=== PATIENT | female | born 1950 | race Caucasian/White ===

== ENCOUNTER 2017-10-20 08:40 | Inpatient (IN) | payer OTHER ==
[~2017-10-20 08:40] MED LIST: *PREOP 1000MG*TRANEX ACID/NS 100 ML IV ONE; TRANEXAMIC ACID 1,000 MG in NS (SYRINGE) 50 ML IV ONE
[2017-10-20] MEDS ORDERED: LR 1,000 ML IV ONE (08:52)
[2017-10-20] MEDS ORDERED: ACETAMINOPHEN 500 MG TAB PO ONE (08:52)
[2017-10-20] MEDS ORDERED: morphINE PF 0.2 MG in SYRINGE INTRATHECAL 1 SYR IT ONE (08:52)
[2017-10-20] MEDS ORDERED: ceFAZolin 2 GM/DEXTROSE 100 ML IV ONE (08:52)
[2017-10-20] MEDS ORDERED: LIDOCAINE 1% 2 ML INJ ID PRN (08:52)
[2017-10-20] MEDS ORDERED: fentaNYL 50 MCG in SYRINGE INTRATHECAL 1 SYR IT ONE (08:52)
[2017-10-20] MEDS ORDERED: GABAPENTIN 300 MG CAP PO ONE (08:52)
[2017-10-20] MEDS ORDERED: LIDOCAINE 1% 2 ML INJ ONE (09:22)
[2017-10-20] MEDS ORDERED: MIDAZOLAM 2 MG/2 ML VIAL IVP ONE (09:32)
--- NOTE | 2017-10-20 09:32 | PDANEPAE ---
ANE History of Present Illness L3 S1 TLIF ANE Past Medical History - Cardiovascular History Hx Hypertension: No Hx Arrhythmias: Yes Hx Chest Pain: No Hx Coronary Artery / Peripheral Vascular Disease: No Hx CHF / Valvular Disease: No Hx Palpitations: No Cardiovascular History Comment: irregular heart beat. 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 glaucoma. bruises easily - Chronic Pain History Chronic Pain: Yes (right knee) - Surgical History Prior Surgeries: neck C2-7 fusion 2003 ANE Review of Systems Review of systems is: negative Review of Systems: - Exercise capacity METS (RN): 4 METS ANE Patient History - Allergies Allergies/Adverse Reactions: lamotrigine Allergy (Verified 10/10/17 09:55) Vomiting oxcarbazepine Allergy (Verified 10/10/17 09:55) Vomiting sertraline Allergy (Verified 10/10/17 09:55) Vomiting - Home Medications Home medications: home medication list seen and reviewed Home Medications: Albuterol [Ventolin Hfa Inhaler] 1 puffs IH DAILY PRN 10/10/17 [Last Taken 10/20] Aspirin EC [Aspirin EC 81 mg (*)] 81 mg PO DAILY 10/10/17 [Last Taken 1 Week Ago ~10/13/17] Atorvastatin Calcium [Lipitor 40 mg (*)] 40 mg PO DAILY 10/10/17 [Last Taken 06/08] Cholecalciferol Vit D3 [Vitamin D3 (*)] 1,000 units PO DAILY 10/10/17 [Last Taken 1 Week Ago ~10/13/17] FLUoxetine [Prozac 20 MG (*)] 40 mg PO DAILY 10/10/17 [Last Taken 10/20/17] Fluticasone/Salmeter 250/50Mcg [Advair 250/50 (*)] 2 puffs IH BID 10/10/17 [ Last Taken 10/20/17] buPROPion SR [Wellbutrin 150mg SR (*)] 450 mg PO DAILY 10/10/17 [Last Taken 06/08] - NPO status NPO Status: no food or drink >8 hours NPO Since - Liquids (Date): 10/19/17 NPO Since - Liquids (Time): 06:30 NPO Since - Solids (Date): 10/19/17 NPO Since - Solids (Time): 20:00 - Anes Hx Anes Hx: no prior problems - Smoking Hx Smoking Status: Former smoker - Family Anes Hx Family Anes Hx: none Family Hx Anesthesia Complications: none ANE Labs/Vital Signs - Labs Result Diagrams: 10/20/17 09:31 10/20/17 09:31 - Vital Signs Vital Signs: reviewed preoperatively; see RN documention for details Height: 171.45 cm Weight: 80.739 kg ANE Physical Exam - Airway Neck exam: decreased ROM Mallampati Score: Class 1 Mouth exam: normal dental/mouth exam - Pulmonary Pulmonary: no respiratory distress - Cardiovascular Cardiovascular: regular rate and rhythym - ASA Status ASA Status: III ANE Anesthesia Plan Anesthesia Plan: general endotracheal anesthesia (pt understands there are risks with intubation due to neck and laryngeal comorbities and wishes to proceed)
[2017-10-20] MEDS ORDERED: BUPIVACAINE 0.25% 30 ML SDV ONE (09:39)
[2017-10-20] MEDS ORDERED: CHLORHEXIDINE GLUC HIBICLENS 118 ML BTL TP ONE (09:39)
[2017-10-20] MEDS ORDERED: THROMBIN (BOVINE) 20,000 UNIT VIAL TP ONE (09:39)
[2017-10-20] MEDS ORDERED: CITRATE DEXTROSE SOLN 500 ML BAG ONE (09:40)
[2017-10-20] MEDS ORDERED: EPINEPHrine 1 MG/ML INJ ONE (09:40)
[2017-10-20] MEDS ORDERED: BACITRACIN 50,000 UNITS/10 ML SYR IRR ONE ×2 (09:41→14:07)
[2017-10-20 09:49] LABS: PLATELET COUNT 202 10^3/uL (150-400)
--- NOTE | 2017-10-20 09:50 | CPEKG ---
Heart Rate: 59 RR Interval: 1017 P-R Interval: 200 QRSD Interval: 90 QT Interval: 428 QTC Interval: 424 P [place]: 76 QRS [place]: 77 T Wave [place]: 61 EKG Severity - BORDERLINE ECG - EKG Impression: SINUS RHYTHM EKG Impression: BORDERLINE T ABNORMALITIES, ANT-LAT LEADS Electronically Signed By: Scott Phillips 20-Oct-2017 11:00:25
[2017-10-20] MEDS ORDERED: LIDOCAINE 2% 100 MG/5 ML SYR ONE (10:50)
[2017-10-20] MEDS ORDERED: HYDROmorphONE/DILAUDID 2 MG/ML INJ ONE (10:50)
[2017-10-20] MEDS ORDERED: REMIFENTANIL HCL 1 MG VIAL ONE ×2 (10:50→15:06)
[2017-10-20] MEDS ORDERED: ROCURONIUM 50 MG/5 ML VIAL ONE (10:50)
[2017-10-20] MEDS ORDERED: DEXAMETHASONE 4 MG/ML VIAL ONE (10:50)
[2017-10-20] MEDS ORDERED: ONDANSETRON 4 MG/2 ML VIAL ONE (10:50)
[2017-10-20] MEDS ORDERED: PROPOFOL/EMULSION 500 MG/50 ML BOTTLE IV ONE (10:51)
[2017-10-20] MEDS ORDERED: PROPOFOL 200 MG/20 ML VIAL ONE ×2 (10:51→15:06)
[2017-10-20] MEDS ORDERED: fentaNYL 100 MCG/2 ML INJ ONE (10:51)
--- NOTE | 2017-10-20 10:51 | PDHPUP ---
History & Physical Update H&P update statement: This history and physical update is based on an assessment of the patient which was completed after admission or registration (within 24 hours), but prior to the surgery/procedure. H&P update: H&P reviewed & patient examined, no change in patient's condition since H&P completed
[2017-10-20] MEDS ORDERED: ALBUTEROL 3 ML DEYVIAL IH PRN (12:15)
[2017-10-20] MEDS ORDERED: oxyCODONE IR 5 MG TAB PO PRN ×2 (12:15→14:31)
[2017-10-20] MEDS ORDERED: HYDROCODONE/APAP 5/325 TAB PO PRN ×2 (12:15→14:31)
[2017-10-20] MEDS ORDERED: MEPERIDINE 25 MG/0.5 ML AMP IVP PRN ×2 (12:15→14:31)
[2017-10-20] MEDS ORDERED: DEXAMETHASONE 4 MG/ML VIAL IVP PRN ×2 (12:15→14:31)
[2017-10-20] MEDS ORDERED: PROMETHAZINE HCL 25 MG/ML INJ IVP PRN ×2 (12:15→14:31)
[2017-10-20] MEDS ORDERED: ONDANSETRON 4 MG/2 ML VIAL IVP PRN ×3 (12:15→16:14)
[2017-10-20] MEDS ORDERED: LABETALOL HCL 5 MG/ML 20 ML MDV IVP PRN ×2 (12:15→14:31)
[2017-10-20] MEDS ORDERED: HYDROmorphONE/DILAUDID 1 MG/ML INJ IVP PRN ×2 (12:15→14:31)
[2017-10-20] MEDS ORDERED: DIAZEPAM 5 MG/ML 1 ML SYR IVP PRN ×2 (12:15→14:31)
[2017-10-20] MEDS ORDERED: NALOXONE HCL 0.4 MG/ML INJ IVP PRN ×3 (12:15→16:14)
[2017-10-20] MEDS ORDERED: fentaNYL 100 MCG/2 ML INJ IVP PRN ×2 (12:15→14:31)
[2017-10-20] MEDS ORDERED: THROMBIN (BOVINE) 5,000 UNIT VIAL TP ONE (12:48)
[2017-10-20] MEDS ORDERED: ceFAZolin 1 GM VIAL ONE (13:17)
[2017-10-20] MEDS ORDERED: ACETAMINOPHEN 500 MG TAB PO PRN (14:31)
--- NOTE | 2017-10-20 14:34 | POSTANESTH ---
Post Anesthetic Evaluation Cardiovascular Status: Normal, Stable, Similar to Pre-Op Cond Respiratory Status: Normal, Stable, Similar to Pre-op Cond. Level of Consciousness/Mental Status: Can Participate in Eval, Mildly Sleepy, Arousable Pain Control: Adequate, Prn Tx Ordered Nausea/Vomiting Control: Adequate, Prn Tx Ordered Complications Possibly Related to Anesthesia: None Noted
[2017-10-20] MEDS ORDERED: diphenhydrAMINE 25 MG CAP PO PRN (16:14)
[2017-10-20] MEDS ORDERED: MAGNESIUM HYDROXIDE 30 ML UDCUP PO PRN (16:14)
[2017-10-20] MEDS ORDERED: LACTULOSE 20 GM/30 ML UDCUP PO PRN (16:14)
[2017-10-20] MEDS ORDERED: morphINE PCA 30 MG/30 ML PCA IV PRN (16:14)
[2017-10-20] MEDS ORDERED: BISACODYL 10 MG SUPP PR PRN (16:14)
--- NOTE | 2017-10-20 16:20 | SOAPPROG ---
SOAP Progress Note Assessment/Plan: Assessment: 67 yo F sp L3-S1 TLIF Plan: stable PT/OT x-rays in am lovenox starts pod #1 please call with neuro changes 10/20/17 16:19 Subjective: + back pain, no leg pain. Objective: Vital Signs Temp Pulse Resp BP Pulse Ox 36.8 C 58 L 18 126/75 H 96 10/20/17 09:10 10/20/17 09:10 10/20/17 09:10 10/20/17 09:10 10/20/17 09:10 Laboratory Results 10/20/17 09:31 10/20/17 09:31 somnolent PERRL, no facial droop BIJAN x 4 + light touch ICD10 Worksheet Patient Problems: Problems Problem Status Onset Fusion of spine of lumbar region Acute - ICD10 Problem Qualifiers (1) Fusion of spine of lumbar region
--- NOTE | 2017-10-20 16:33 | GOP ---
[f rep st] OPERATIVE REPORT DATE OF OPERATION: 10/20/2017 SURGEON: Dennys Wiggins MD ELECTRICAL SYSTEM SPECIALIST: Christopher Galindo PA-C. ANESTHESIA: General endotracheal. PREOPERATIVE DIAGNOSIS: Severe multilevel lumbar degenerative joint disease with unstable spondyloli sthesis and critical spinal stenosis. Intractable low back pain and left greater than right lower ex tremity radicular symptoms. Intractable neurogenic claudication. Failed conservative care. POSTOPERATIVE DIAGNOSIS: Severe multilevel lumbar degenerative joint disease with unstable spondylol isthesis and critical spinal stenosis. Intractable low back pain and left greater than right lower e xtremity radicular symptoms. Intractable neurogenic claudication. Failed conservative care. PROCEDURE PERFORMED: Left-sided far lateral transpedicular decompression at the L3-4, L4-5 and L5-S1 levels with L3 through S1 posterior segmental (pedicle screw and axle device) fixation and posterola teral fusion with local autograft, bone morphogenic protein and morselized allograft. L3-4, L4-5 and L5-S1 posterior/transforaminal lumbar interbody fusion with 2 structural PEEK interbody spacers, loc al autograft bone morphogenic protein and morselized allograft. Use of intraoperative microscopy, fl uoroscopy and computer volumetric stereotactic navigation with intraoperative neurophysiologic testin g. Injection of intrathecal narcotic analgesics and subcutaneous and intramuscular local anesthesia for postoperative pain control. FINDINGS: ESTIMATED BLOOD LOSS: 700 cc. INDICATIONS: The patient is a 67-year-old woman with intractable low back pain and left greater than right lower extremity radicular and neurogenic claudication symptoms secondary to severe multilevel lumbar degenerative joint disease and unstable spondylolisthesis with critical spinal stenosis. She has failed extensive conservative care and presents now for multilevel surgical decompression and sta bilization. DESCRIPTION OF PROCEDURE: After informed consent was obtained, the patient was taken to the operatin g room and placed in the prone position on Cory table. The lumbosacral area was prepped and drape d in sterile fashion. After fluoroscopic localization of the correct level the subcutaneous and intr amuscular tissues were infiltrated with local anesthesia. A midline linear incision was then created over the L3 through S1 spinous processes. This was estephania d down to the fascial layer which was then incised using monopolar electrocautery and carried in the subfascial plane along the spinous processes and out the lamina bilaterally. Intraoperative fluorosc opy was again utilized to verify the correct levels. Following this, the dissection was carried out over the facet joints. The microscope was then brought in and after carefully scraping all of the so ft tissue off the bone, left-sided far lateral decompressions were performed with complete unroofing of the facet joints at L3-4, L4-5 and L5-S1 with excellent decompression of the L3-L4, L5 and S1 nerv e roots, the lateral recesses and central canal. The microscope was angled across the midline and ri ght-sided decompressions were performed as well while leaving the spinous processes and interspinous ligaments intact. Following adequate decompression, the [employer] was brought in and using computer volumetric stereotactic navigation, pedicle screws were placed at L3, L4, L5, and S1 bilaterally. Each individual screw was tested neurophysiologically with monopolar electrostim ulation and interpretation of the potentials by the surgeon. Individual rods were then placed and se cured under distraction 1st at L3-4, then at L4-5 then at L5-S1 during which time complete diskectomi es were performed with preparation of the endplates and placement of 2 structural PEEK interbody spac ers, local autograft and bone morphogenic protein at each level. The short rods were then removed an d longer maximally lordotic rods were then placed from L3 through S1 and a slight amount of compressi on was created across the interspaces in order to facilitate bony union and to minimize the potential for posterior graft migration. 200 mcg of Duramorph along with 50 mcg of fentanyl were then injecte d intrathecally for postoperative pain control. The remaining lamina and facet joints on the right s bran were then extensively decorticated, and the residual local autograft along with bone morphogenic protein and morselized allograft was placed out laterally for the posterolateral fusion at the L3 thr ough S1 levels. The subcutaneous and intramuscular tissues were then re-infiltrated with local anest hesia. A drain was placed and the wound was closed in a layered fashion using interrupted Vicryl sut ures followed by Steri-Strips on the skin after re-verification of good position of the screws, rods and interbody spacers using biplanar fluoroscopy. COMPLICATIONS: None. DISPOSITION: The patient is currently in the process of being repositioned for extubation. [facility][id number][facility] [place]
[2017-10-20] MEDS ORDERED: ALBUTEROL 60 PUFFS/8 GM MDI IH PRN (17:00)
[2017-10-20] MEDS: NS 1,000 ML IV SCH (18:03)
[2017-10-20] MEDS ORDERED: FLUTICASONE/SALMETER 250/50MCG DISKUS IH SCH (21:00)
[2017-10-20] MEDS: ceFAZolin 2 GM/DEXTROSE 100 ML IV SCH (21:10)
[2017-10-20] MEDS: FAMOTIDINE 20 MG TAB PO SCH (21:10)
[2017-10-20] MEDS: ACETAMINOPHEN 500 MG TAB PO SCH (21:10)
[2017-10-20] MEDS: SENNOSIDES/DOCUSATE SODIUM TAB PO SCH (21:10)
[2017-10-20] MEDS ORDERED: ceFAZolin 2 GM/DEXTROSE 100 ML IV SCH (22:00)
[2017-10-20] MEDS: GABAPENTIN 300 MG CAP PO SCH (22:37)
[2017-10-20] MEDS: morphINE SR 30 MG TAB PO SCH (22:37)
[2017-10-21] MEDS: METHOCARBAMOL 750 MG TAB PO PRN (03:35)
[2017-10-21] MEDS: ceFAZolin 2 GM/DEXTROSE 100 ML IV SCH (03:35)
[2017-10-21] MEDS: ACETAMINOPHEN 500 MG TAB PO SCH ×3 (05:23→23:17)
[2017-10-21] MEDS: GABAPENTIN 300 MG CAP PO SCH ×3 (05:29→23:17)
[2017-10-21 05:35] LABS: PLATELET COUNT 170 10^3/uL (150-400)
[2017-10-21] MEDS: buPROPion SR 150 MG TAB PO SCH (08:34)
[2017-10-21] MEDS: FLUoxetine 20 MG CAP PO SCH (08:34)
[2017-10-21] MEDS: SENNOSIDES/DOCUSATE SODIUM TAB PO SCH ×2 (08:35→22:48)
[2017-10-21] MEDS: FAMOTIDINE 20 MG TAB PO SCH ×2 (08:35→22:47)
[2017-10-21] MEDS: ATORVASTATIN CALCIUM 40 MG TAB PO SCH (08:35)
[2017-10-21] MEDS: ENOXAPARIN 40 MG/0.4 ML SYR SC SCH (08:36)
[2017-10-21] MEDS: morphINE SR 30 MG TAB PO SCH (08:37)
[2017-10-21] MEDS: oxyCODONE IR 5 MG TAB PO PRN (08:49)
[2017-10-21] MEDS: Mometasone/Formoterol [Dulera 100 Mcg/5 Mcg Inhaler] IH SCH (09:11)
[2017-10-21] MEDS: morphINE SR 15 MG TAB PO SCH ×2 (09:37→22:48)
--- NOTE | 2017-10-21 09:46 | SOAPPROG ---
SOAP Progress Note Assessment/Plan: Assessment: 67 yo F POD #1 L3-S1 TLIF Plan: stable and doing well overall :) PT/OT x-rays today scd/ping/lovenox for DVT prophylaxis LSO brace when out of bed DEEPA x 1 please call with neuro changes discussed with Dr Marquez 10/20/17 16:19 10/21/17 09:44 Subjective: back pain worsening today, no leg pain, no weakness. Objective: Vital Signs Temp Pulse Resp BP Pulse Ox 36.9 C 60 14 112/56 L 97 10/21/17 07:40 10/21/17 09:28 10/21/17 09:28 10/21/17 07:40 10/21/17 09:28 Laboratory Results 10/21/17 05:10 10/21/17 05:10 10/20/17 10/21/17 10/22/17 05:59 05:59 05:59 Intake Total 2455 Output Total 1985 555 Balance 470 -555 AAOx4, +FC PERRL, EOMI, no facial droop BIJAN x4 + light touch C/D/I ICD10 Worksheet Patient Problems: Problems Problem Status Onset Fusion of spine of lumbar region Acute - ICD10 Problem Qualifiers (1) Fusion of spine of lumbar region
--- NOTE | 2017-10-21 10:12 | PDMN ---
Medical Necessity Medical necessity: MCG S820 lumbar fusion 3 days [facility] INTP only TLIF L3/S1
[2017-10-21] MEDS: NS 1,000 ML IV SCH ×2 (14:27→17:09)
[2017-10-21] MEDS ORDERED: NS 500 ML IV ONE (15:00)
--- NOTE | 2017-10-21 16:26 | ASMTCMCOM ---
CM Note CM Note Notes: Pt had planned back surgery, resides in [facility]. OT rec home, PT eval pending. CM to follow. Date Signed: 10/21/2017 04:26 PM Electronically Signed By:DEBO Rob
[2017-10-21] MEDS ORDERED: CALCIUM CARBONATE 500 MG CHEWABLE TAB PO PRN (17:23)
[2017-10-21] MEDS ORDERED: PROMETHAZINE HCL 25 MG/ML INJ IV PRN (17:24)
[2017-10-22] MEDS: GABAPENTIN 300 MG CAP PO SCH ×3 (05:13→21:48)
[2017-10-22] MEDS: ACETAMINOPHEN 500 MG TAB PO SCH ×3 (05:13→21:48)
[2017-10-22 05:27] LABS: PLATELET COUNT 157 10^3/uL (150-400)
--- NOTE | 2017-10-22 07:31 | GPROG ---
[f rep st] PROGRESS NOTE NEUROSURGICAL PROGRESS NOTE. The patient was seen and examined today and is awake, alert and moving all her extremities well. Her dressing is clean and dry. Her drain is still putting out quite a bit of fluid. We will continue w [facility] physical therapy and look at possible placement in rehab. Otherwise, continue present management . /[id number]/[facility]
[2017-10-22] MEDS ORDERED: NS 1,000 ML IV ONE (08:30)
[2017-10-22] MEDS: Mometasone/Formoterol [Dulera 100 Mcg/5 Mcg Inhaler] IH SCH (08:50)
[2017-10-22] MEDS ORDERED: FLUoxetine 20 MG CAP PO SCH (09:00)
[2017-10-22] MEDS: SENNOSIDES/DOCUSATE SODIUM TAB PO SCH ×2 (10:24→20:10)
[2017-10-22] MEDS: FAMOTIDINE 20 MG TAB PO SCH ×2 (10:25→20:11)
[2017-10-22] MEDS: buPROPion SR 150 MG TAB PO SCH (10:25)
[2017-10-22] MEDS: ATORVASTATIN CALCIUM 40 MG TAB PO SCH (10:25)
[2017-10-22] MEDS: FLUoxetine 20 MG CAP PO SCH (10:25)
[2017-10-22] MEDS: ENOXAPARIN 40 MG/0.4 ML SYR SC SCH (10:26)
[2017-10-22] MEDS: morphINE SR 15 MG TAB PO SCH ×2 (11:18→20:12)
--- NOTE | 2017-10-22 15:09 | ASMTCMCOM ---
CM Note CM Note Notes: Reviewed chart regarding discharge plan of care, pt's progress. PT cleared, but recommends a front wheeled walker. OT cleared. Pt to likely discharge home independently with family support back to [place], when medically stable. CM will continue to follow for any potential needs. Current Discharge Plan: Home independently with family support Date Signed: 10/22/2017 03:08 PM Electronically Signed By:Noy Bernal RN
[2017-10-22] MEDS: METHOCARBAMOL 750 MG TAB PO PRN ×2 (15:29→21:48)
[2017-10-22] MEDS: oxyCODONE IR 5 MG TAB PO PRN ×3 (15:35→20:12)
[2017-10-23] MEDS: ACETAMINOPHEN 500 MG TAB PO SCH ×3 (05:14→22:52)
[2017-10-23] MEDS: GABAPENTIN 300 MG CAP PO SCH ×3 (05:15→21:13)
[2017-10-23] MEDS: ATORVASTATIN CALCIUM 40 MG TAB PO SCH (08:54)
[2017-10-23] MEDS: buPROPion SR 150 MG TAB PO SCH (08:54)
[2017-10-23] MEDS: FAMOTIDINE 20 MG TAB PO SCH ×2 (08:54→21:11)
[2017-10-23] MEDS: METHOCARBAMOL 750 MG TAB PO PRN ×2 (08:54→18:12)
[2017-10-23] MEDS: FLUoxetine 20 MG CAP PO SCH (08:54)
[2017-10-23] MEDS: ENOXAPARIN 40 MG/0.4 ML SYR SC SCH (08:54)
[2017-10-23] MEDS: SENNOSIDES/DOCUSATE SODIUM TAB PO SCH ×2 (08:55→22:32)
[2017-10-23] MEDS: Mometasone/Formoterol [Dulera 100 Mcg/5 Mcg Inhaler] IH SCH (09:55)
[2017-10-23] MEDS: morphINE SR 15 MG TAB PO SCH ×2 (09:56→21:16)
[2017-10-23] MEDS: oxyCODONE IR 5 MG TAB PO PRN (10:25)
[2017-10-23] MEDS: ONDANSETRON DISINTEGRATING 4 MG TAB PO PRN ×2 (12:01→21:11)
--- NOTE | 2017-10-23 12:12 | ASMTCMCOM ---
CM Note CM Note Notes: Although pt expressed interest in rehab she will not qualify. Explained to pt unless she is able to private pay, [employer] insurance would not authorize payment of SNF as OT/PT recommend home. Pt verbalizes understanding and reports she fells safe discharging to her mother's home in [place] until she is able to return to her own home in [place] with her . CM will continue to follow pt progress. Date Signed: 10/23/2017 12:11 PM Electronically Signed By:DEBO Rob
--- NOTE | 2017-10-23 12:37 | NEUSURGPN ---
Assessment/Plan: Assessment/Plan: Assessment: 67 yo F POD #2 L3-S1 TLIF Plan: Doing well and making progress. Pain well controlled and leg pain is improving. PT/OT x-rays today scd/ping/lovenox for DVT prophylaxis LSO brace when out of bed DEEPA x 1- may be removed today Dispo- insurance will not cover rehab so patient will stay with family in [place] until postop then go back down to [place]. May go when cleared by therapies, either today or tomorrow please call with neuro changes discussed with Dr Marquez 10/20/17 16:19 10/21/17 09:44 Subjective: Back pain is tolerable. Leg pain improved. Slept well last night and was up with PT yesterday walking around the hallway. Happy with her progress. - Physician Discussed Patient with : [facility] Physical Exam - Vitals, I&O, Labs I and O 10/22/17 10/23/17 10/24/17 05:59 05:59 05:59 Intake Total 2478 800 Output Total 710 135 Balance 1768 665 Intake: Oral (ml) 500 800 IV Intake (ml) 978 IV Infused (ml) 1000 Ns 500 ml @ 500 mls/hr IV 1000 ONCE ONE Rx#:[id number] Output: Urine (ml) 500 Catheter 500 DEEPA Drain Output (ml) 210 135 #1 Back Cory Salmon 210 135 Other: Intake Quantity Yes Yes Sufficient Number of Voids Toilet 1 1 Vital Signs Temp Pulse Resp BP Pulse Ox 36.9 C 62 16 119/61 92 10/23/17 11:42 10/23/17 11:42 10/23/17 11:42 10/23/17 11:42 10/23/17 11:42 Laboratory Results 10/22/17 05:10 10/21/17 05:10 ICD10 Worksheet Patient Problems: Problems Problem Status Onset Fusion of spine of lumbar region Acute
[2017-10-24] MEDS: GABAPENTIN 300 MG CAP PO SCH ×2 (05:57→13:55)
[2017-10-24] MEDS: METHOCARBAMOL 750 MG TAB PO PRN (05:58)
[2017-10-24] MEDS: ACETAMINOPHEN 500 MG TAB PO SCH (05:58)
[2017-10-24 08:06] VITALS: BP 114/64
[2017-10-24] MEDS: FLUoxetine 20 MG CAP PO SCH (09:24)
[2017-10-24] MEDS: ATORVASTATIN CALCIUM 40 MG TAB PO SCH (09:24)
[2017-10-24] MEDS: buPROPion SR 150 MG TAB PO SCH (09:24)
[2017-10-24] MEDS: ENOXAPARIN 40 MG/0.4 ML SYR SC SCH (09:25)
[2017-10-24] MEDS: FAMOTIDINE 20 MG TAB PO SCH (09:25)
[2017-10-24] MEDS: SENNOSIDES/DOCUSATE SODIUM TAB PO SCH (09:25)
[2017-10-24] MEDS: Mometasone/Formoterol [Dulera 100 Mcg/5 Mcg Inhaler] IH SCH (09:31)
[2017-10-24] MEDS: morphINE SR 15 MG TAB PO SCH (09:38)
[2017-10-24] MEDS: oxyCODONE IR 5 MG TAB PO PRN ×2 (09:42→13:56)
[2017-10-24] MEDS: ONDANSETRON DISINTEGRATING 4 MG TAB PO PRN (09:43)
--- NOTE | 2017-10-24 12:27 | NEUSURGPN ---
Assessment/Plan: Assessment: 67 yo F POD #3 L3-S1 TLIF Plan: Doing well and making progress. Pain well controlled and leg pain is improving. PT/OT scd/ping/lovenox for DVT prophylaxis LSO brace when out of bed Dispo planning please call with neuro changes discussed with Dr Marquez Subjective: pain tolerable with medications Objective: NAD, A&Ox3 MAEx4 5/5 and equal in BUE and BLE. Incision c/d/i - Physician Discussed Patient with Dr.: [facility] Physical Exam - Vitals, I&O, Labs I and O 10/23/17 10/24/17 10/25/17 05:59 05:59 05:59 Intake Total 800 350 Output Total 135 Balance 665 350 Intake: Oral (ml) 800 350 Output: DEEPA Drain Output (ml) 135 #1 Back Cory Salmon 135 Other: Intake Quantity Yes Sufficient Number of Voids Toilet 1 2 Number of Stools Toilet 1 Vital Signs Temp Pulse Resp BP Pulse Ox 37.2 C 67 16 114/64 92 10/24/17 11:34 10/24/17 11:34 10/24/17 11:34 10/24/17 11:34 10/24/17 11:34 Laboratory Results 10/22/17 05:10 10/21/17 05:10 ICD10 Worksheet Patient Problems: Problems Problem Status Onset Fusion of spine of lumbar region Acute
--- NOTE | 2017-10-24 14:08 | ASMTCMCOM ---
CM Note CM Note Notes: Pt medically stable for d/c to her mother's home, no CM d/c needs identified. Date Signed: 10/24/2017 02:08 PM Electronically Signed By:DEBO Rob
--- NOTE | 2017-11-05 14:24 | GDS ---
[f rep st] DISCHARGE SUMMARY ADMISSION DIAGNOSIS: Lumbar degenerative joint disease. DISCHARGE DIAGNOSIS: L3 to S1 transforaminal lumbar interbody fusion. HISTORY AND PHYSICAL: Please see admission history and physical. HOSPITAL COURSE: The patient is a 67-year-old female who presented with severe lumbar degenerative j oint disease and stenosis. She was taken to the operating room on 10/20/2017, where she underwent an L3-L4, L4-L5, and L5-S1 transforaminal lumbar interbody fusion. There were no intraoperative compl ications, and she was admitted to the floor for observation. On the floor, she was tolerating a regu lar diet, and her pain was controlled with p.o. pain medications. Her postoperative x-rays showed go od position of the hardware. She made fair progress with physical therapy and occupational therapy. The patient was discharged home in stable condition on 10/24/2017. Patient was discharged with lumb ar fusion instructions and recommended she return for a neurosurgical followup appointment in 10-14 d ays. /[id number]/[facility]
== END 2017-10-24 14:38 | disposition home or self-care (01) | DRG 455 ==
LOC: F3N 08:40
PROVIDERS: ADMIT Neurological Surgery; ATTEND Neurological Surgery
DX: M43.16 Spondylolisthesis, lumbar region (principal); M51.36 Other intervertebral disc degeneration, lumbar region; M48.062 Spinal stenosis, lumbar region with neurogenic claudication; M54.16 Radiculopathy, lumbar region; R00.9 Unspecified abnormalities of heart beat; J45.909 Unspecified asthma, uncomplicated; M48.07 Spinal stenosis, lumbosacral region
CPT/HCPCS: 97116-GP; 97161-GP; 97165-GO; 97535-GO; C1713; C1762; G8978-GP-CI; G8979-GP-CI; G8980-GP-CI; G8987-GO-CK; G8988-GO-CI; G8989-GO-CI; J0171; J0690; J1100; J1170; J1650; J2001; J2250; J2274; J2405; J2550; J2704; J3010; J7060